=== PATIENT | male | born 1975 | race Caucasian/White ===

== ENCOUNTER 2017-10-21 13:34 | Emergency (ER) | payer OTHER ==
[~2017-10-21] VITALS: Ht 180.3 cm; Wt 190.5 kg
[~2017-10-21 13:34] MED LIST: ALTACE10 MG PO; ATENOLOL25 MG PO; CATAFLAM50 MG PO; LASIX20 MG PO; LIPITOR20 MG PO; MICARDIS HCT 81 EACH; NORVASC10 MG; PREDNISONE10 MG PO; TORADOL60 MG IM; TUSSI PRES-B L120 M1; ZITHROMAX TRI-500 MG
== END 2017-10-21 18:17 | disposition home or self-care (01) ==
LOC: ER 13:34
DX: R94.39 Abnormal result of other cardiovascular function study (principal)

== ENCOUNTER 2019-01-16 17:13 | Emergency (ER) | payer OTHER ==
[~2019-01-16] VITALS: Ht 180.3 cm; Wt 77.1 kg
== END 2019-01-16 18:12 | disposition home or self-care (01) ==
LOC: ER 17:13
DX: R00.2 Palpitations (principal)

== ENCOUNTER → 2019-04-21 | Emergency (ER) | payer OTHER ==
[~2019-04-21] VITALS: Ht 180.3 cm; Wt 188.2 kg
[~2019-04-21] MED LIST changes: +ASPIRINA
== END | disposition left against medical advice (07) ==
LOC: ER 19:07
DX: I16.0 Hypertensive urgency (principal); I10 Essential (primary) hypertension; R00.2 Palpitations

== ENCOUNTER 2021-05-18 20:54 | Emergency (ER) | payer OTHER ==
[~2021-05-18] VITALS: Ht 180.3 cm; Wt 209.6 kg
[2021-05-18] MEDS ORDERED: NORFLEX100MG PO (22:38)
[2021-05-18] MEDS ORDERED: CYCLOBENZAPRINE10 MG PO (22:38)
== END 2021-05-18 22:41 | disposition home or self-care (01) ==
LOC: ER 20:54
DX: S20.212A Contusion of left front wall of thorax, initial encounter (principal); W19.XXXA Unspecified fall, initial encounter; Y93.89 Activity, other specified; Y92.019 Unspecified place in single-family (private) house as the place of occurrence of the external cause

== ENCOUNTER 2022-07-26 11:05 | Outpatient (CLI) | payer OTHER ==
[~2022-07-26 11:05] MED LIST changes: +CYCLOBENZAPRINE10 MG PO; +NORFLEX100MG PO
== END 2022-07-26 11:09 | disposition home or self-care (01) ==
LOC: NUCLEAR 11:05
PROVIDERS: ATTEND Specialist
DX: I73.9 Peripheral vascular disease, unspecified (principal)

== ENCOUNTER 2022-08-12 11:15 | Outpatient (CLI) | payer OTHER | END 2022-08-12 11:16 | disposition home or self-care (01) | LOC: NUCLEAR 11:15 | PROVIDERS: ATTEND Specialist | DX: I87.2 Venous insufficiency (chronic) (peripheral) (principal) ==